=== PATIENT | female | born 1950 | race Caucasian/White ===

== ENCOUNTER 2017-07-21 10:25 | Day surgery (SDC) | payer MEDICARE, OTHER ==
[~2017-07-21] VITALS: Ht 154.9 cm; Wt 52.7 kg
[2017-07-21] MEDS ORDERED: LEVO75TA3 PO (10:41)
[2017-07-21] MEDS ORDERED: VENTAER INH (10:41)
[2017-07-21] MEDS ORDERED: FLUT1INH7 INH (10:41)
[2017-07-21] MEDS ORDERED: ALPR1TAB3 PO (10:41)
[2017-07-21 10:46] VITALS: BP 108/73; PULSE 60; RESP 20; TEMP 97.6; O2SAT 94
[2017-07-21 11:19] LABS: PROTHROMBIN TIME - PATIENT 10.3 SEC (9.8-11.6)
[2017-07-21 11:20] LABS: BASOPHIL % 0.6 % (0.0-2.0); EOSINOPHIL # 0.2 TH/MM3 (0-0.4); EOSINOPHIL % 2.4 % (0.0-4.0); HEMOGLOBIN 13.7 GM/DL (11.6-15.3); LYMPHOCYTE # 1.4 TH/MM3 (1.0-4.8); MEAN CELL VOLUME 90.5 FL (80.0-100.0); MEAN CORPUSCULAR HEMOGLOBIN 31.8 PG (27.0-34.0); MEAN CORPUSCULAR HGB CONC 35.1 % (32.0-36.0); MEAN PLATELET VOLUME 8.2 FL (7.0-11.0); MONO % 5.7 % (0.0-8.0); MONOCYTE # 0.4 TH/MM3 (0-0.9); NEUT % 71.3 % (16.0-70.0); PLATELET COUNT 306 TH/MM3 (150-450); RED BLOOD COUNT 4.31 MIL/MM3 (4.00-5.30)
[2017-07-21 11:45] LABS: BICARBONATE 25.3 MEQ/L (21.0-32.0); CALCIUM 8.2 MG/DL (8.5-10.1); CREATININE 0.6 MG/DL (0.50-1.00)
[2017-07-21] MEDS ORDERED: SODIUM CHLORID 0.9% 500 ML IV PRN (11:45)
[2017-07-21] MEDS ORDERED: CHLORHEXIDINE GLUCONATE 2 % 1 PACK (2 CLOTHS) TOPICAL PRN (11:45)
[2017-07-21] MEDS ORDERED: POVIDONE IODINE 5% (ANTISEPSIS KIT) 4 APPLICATIONS EACH NARE PRN (11:45)
[2017-07-21] MEDS ORDERED: METOPROLOL TARTRATE 25 MG TAB PO PRN (11:45)
[2017-07-21] MEDS ORDERED: LACTATED RINGER'S 1000 ML IV PRN (11:45)
[2017-07-21] MEDS ORDERED: ceFAZolin 2 GM PREMIX 50 ML IV SCH (12:00)
[2017-07-21] MEDS ORDERED: SODIUM CHLOR 0.9% 1000 ML INJ 1,000 ML IV SCH (12:00)
[2017-07-21 15:00] VITALS: BP 138/74; PULSE 96; RESP 16; TEMP 97.4; O2SAT 92
[2017-07-21] MEDS ORDERED: RESP: ALBUTEROL CONC 2.5 MG/0.5 ML NEB ONE (15:14)
[2017-07-21 15:15] VITALS: BP 157/77; PULSE 100; RESP 24; O2SAT 95
[2017-07-21] MEDS ORDERED: ONDANSETRON HCL 4 MG/2 ML VIAL ONE (15:18)
[2017-07-21] MEDS ORDERED: HYDROmorphone HCL PF 2 MG/ML VIAL ONE (15:29)
[2017-07-21 15:30] VITALS: BP 138/98; PULSE 101; RESP 22; O2SAT 95
[2017-07-21] MEDS ORDERED: RESP: ALBUTEROL 2.5 MG/3 ML NEB (SCH) INH ONE (15:45)
[2017-07-21] MEDS ORDERED: ONDANSETRON HCL 4 MG/2 ML VIAL IV PUSH ONE (15:45)
[2017-07-21 16:00] VITALS: BP 109/63; PULSE 77; RESP 20; O2SAT 97
--- NOTE | 2017-07-21 16:10 | RADRPT ---
EXAM DATE/TIME: 07/21/2017 13:10 [place] COMPARISON: KYPHOPLASTY, FLUORO GUIDED, July 21, 2017, 0:00. INDICATIONS : 66-year-old female with history of acute painful T7 and T8 compression fractures. Patient has persist ent 7-8/10 pain with activity. Patient denies any radiculopathy. MEDICAL HISTORY : 1. COPD 2. Asthma 3. smoker 4. Hypothyroid SURGICAL HISTORY : 1. c section ENCOUNTER: Initial ACUITY: 4-6 months PAIN SCORE: 4/10 LOCATION: upper back FLUORO TIME: 14.3 minutes IMAGE SERIES: 0 LEVEL: T7 T8 MEDICATION(S): 1.) 2 g cefazolin (Ancef) IV Intra-procedural antibiotics were given as prescribed above. DEVICE: 1. 10 cc AVAMax bone cement Anesthesia and pain control was provided by the Anesthesia department. PROCEDURE : 1. Fluoroscopically-guided kyphoplasty. 2. Conscious sedation with continuous EKG and oximetry monitoring. The risks, benefits and alternatives to the procedure were explained and verbal and written consent w as obtained. The site was prepped in sterile fashion. Full sterile technique was used, including ca p, mask, sterile gloves and gown and a large sterile sheet. Hand hygiene and 2% chlorhexidine and/or betadine/alcohol prep was utilized per protocol for cutaneous antisepsis. The skin and subcutaneous tissues were infiltrated with local anesthetic solution. With fluoroscopic guidance via the above described approach access was gained to the vertebral body. Kyphoplasty was performed with cavity creation as above. The prescribed cement volume was placed. Post procedure images demonstrate cement confined to the vertebral body. Conscious sedation was performed with the prescribed dosages and duration as above in the presence of an independent trained radiology nurse to assist in the monitoring of the patient. EKG and oximetry remained stable throughout the procedure. The patient tolerated the procedure well and there were n o complications. The patient was sent to post anesthesia recovery in stable condition. CONCLUSION: Uncomplicated T7 and T8 kyphoplasty as above. Micah Thomas MD on July 21, 2017 at 16:06 Board Certified Radiologist. This report was verified electronically.
[2017-07-21] MEDS ORDERED: HYDROmorphone HCL PF 2 MG/ML VIAL IV PUSH ONE ×2 (16:15)
[2017-07-21 17:00] VITALS: BP 112/70; PULSE 75; RESP 18; O2SAT 94
--- NOTE | 2017-07-21 17:07 | EKG ---
Date Performed: 07/21/2017 Time Performed: 10:55:05 PTAGE: 66 years EKG: Sinus rhythm NORMAL ECG NO PREVIOUS TRACING DOCTOR: Chloe Mcgovern Interpretating Date/Time 07/21/2017 17:06:10
== END 2017-07-21 17:12 | disposition home or self-care (01) ==
LOC: HROP 10:25 → HRIP 10:29 → HROP 17:12
PROVIDERS: ATTEND Specialist
DX: S22.060A Wedge compression fracture of T7-T8 vertebra, initial encounter for closed fracture (principal); I10 Essential (primary) hypertension; E03.9 Hypothyroidism, unspecified; J44.9 Chronic obstructive pulmonary disease, unspecified; J45.909 Unspecified asthma, uncomplicated; F17.200 Nicotine dependence, unspecified, uncomplicated
CPT/HCPCS: 01936; 22513; 22515; 80048; 85025; 85610; 85730; 93005; J1170; J2405; J7611